=== PATIENT | male | born 1960 | race Caucasian/White ===

== ENCOUNTER 2016-09-17 07:03 | Outpatient (CLI) | payer BC | END 2016-09-17 07:04 | disposition home or self-care (01) | DX: G47.61 Periodic limb movement disorder (principal) ==

== ENCOUNTER 2016-10-18 09:03 | Outpatient (CLI) | payer BC | END 2016-10-18 09:04 | disposition home or self-care (01) | DX: G47.61 Periodic limb movement disorder (principal); G47.10 Hypersomnia, unspecified ==

== ENCOUNTER 2017-02-25 07:40 | Outpatient (CLI) | payer BC ==
[2017-02-25] MEDS ORDERED: GADOBUTROL 10 MMOL/10 ML SYRINGE IVP ONE (08:41)
--- NOTE | 2017-02-25 12:47 | MRI Report ---
MRI brain and orbits without and with contrast INDICATION: 57-year-old male with history of 2 episodes of iritis in past 10 years. Please assess. TECHNIQUE: Imaging of the brain and orbits has been performed. Brain 1. T1 sagittal and fat-saturated T2 coronal. 2. Axial T1 3-D MP RAGE, FLAIR, T2* and DWI. 3. 8 cc IV Gadavist. T1 3-D and T1 spin echo axials. Orbits 1. Thin slice, fat-saturated T2 coronal. 2. Postcontrast, thin slice, T1 fat saturated axial and coronal. COMPARISON: None. FINDINGS: Orbits Assessment is somewhat limited, given absence of precontrast, T1 fat-saturated axial sequence through the orbits. There does appear to be smooth thin uveal tract enhancement bilaterally in symmetric pat tern with relative sparing of the anterior uveal tracts bilaterally. This is not clearly pathologic. No abnormal enhancement is identified in the retro-bulbar fat or along the course of either optic ner ve. No evidence of choroidal or retinal detachment in either orbit. In addition, no enhancing intraoc ular mass lesion is demonstrated. The optic nerves demonstrate normal signal intensity throughout. No abnormal T2 hyperintensity is demonstrated. The optic chiasm is normal and noncompressed. The extrao cular muscles and lacrimal glands appear normal. No evidence of intraorbital mass. The superior ophth almic veins are normal in size and appear patent. There is normal, symmetric enhancement of the malcom nous sinuses without evidence of cavernous sinus mass or thrombosis. Brain Ventricular size is normal. A mild amount of white matter disease is identified in the supratentorial brain, manifested as small T2 hyperintensities that are scattered throughout the periventricular, deep and subcortical white mat ter bilaterally. A frontoparietal distribution predominates. Signal intensity of cortex and white mat ter is otherwise normal. Flow voids are demonstrated in the main intracranial arteries. No abnormal diffusion restriction is d emonstrated. No evidence of acute or chronic hemorrhage on T2* GRE sequence. The pineal gland is mildly enlarged. It measures about 8.4 mm AP by 8 mm transverse. The enlargement is secondary to a few cysts within the pineal gland. There is smooth uniform enhancement surrounding the pineal cyst. No nodular type enhancement is identified in the pineal region, and there is no path ologic leptomeningeal enhancement in the pararenal pineal area. Therefore, the imaging findings are m ost suggestive of benign change. No findings would suggest the possibility of pineal malignancy. No enhancing intra-or extra-axial mass lesion is demonstrated. No pathologic meningeal or cranial ner ve enhancement is identified. There appears be normal intravascular contrast enhancement in the dural venous sinuses and deep venous structures. This effectively excludes the possibility of venous throm bosis. There is minor mucosal thickening scattered throughout the ethmoid air cells. The paranasal sinuses a re otherwise clear. No significant mastoid or middle ear effusion is demonstrated. IMPRESSION: 1. Unremarkable MRI examination of the orbits. There is very thin, smooth enhancement of the uveal tr acts in both optic globes. However, this is not considered pathologic. In addition, no abnormal enhan cement is identified in the retrobulbar fat or along the course of either optic nerve. 2. A mild amount of white matter disease is identified in the supratentorial brain. The etiology is u ncertain. Differential diagnostic considerations would include virtually the entire gamut of white ma tter disease. However, statistically this most likely represents chronic microangiopathy. The index o f suspicion for a demyelinating process is low. 3. Otherwise unremarkable MRI examination of the brain. Referring Provider Line: [phone] SITE ID: [id number]
== END 2017-02-25 07:41 | disposition home or self-care (01) ==
LOC: DI 07:40
PROVIDERS: ATTEND Physician Assistant Medical
DX: H20.9 Unspecified iridocyclitis (principal); R90.82 White matter disease, unspecified
CPT/HCPCS: 70553; A9585

== ENCOUNTER 2017-03-24 07:26 | Outpatient (CLI) | payer BC ==
--- NOTE | 2017-03-25 10:39 | Ultrasound Report ---
AORTA SCREEN: 03/24/2017 CLINICAL INDICATION: Family history of aneurysm. TECHNIQUE: Real-time scanning was performed with patient account representative static images obtained. FINDINGS: The abdominal aorta is normal in caliber, measuring 2.5 cm proximally, 1.7 cm in the mid p ortion, and 1.5 cm distally. The iliacs are normal in caliber. No free fluid is present. IMPRESSION: NO EVIDENCE OF ABDOMINAL AORTIC ANEURYSM. JOB #: [id number] EXT JOB #:
== END 2017-03-24 07:27 | disposition home or self-care (01) ==
LOC: DI 07:26
PROVIDERS: ATTEND Physician Assistant Medical
DX: Z82.49 Family history of ischemic heart disease and other diseases of the circulatory system (principal)
CPT/HCPCS: 76706

== ENCOUNTER 2017-04-11 07:33 | Outpatient (CLI) | payer BC ==
--- NOTE | 2017-04-11 09:30 | CT Report ---
CHEST CT WITHOUT CONTRAST: 04/11/2017 CLINICAL INDICATION: A 57-year-old with [id number] history of smoking, quit within the last 15 year s, for lung cancer screening. TECHNIQUE: Axial CT images of the chest were obtained without contrast, using low dose electro mechanical technologist nique. No previous CT is available for comparison. FINDINGS: The heart and great vessels are unremarkable. No hilar or mediastinal lymphadenopathy is p resent. The lungs are clear. No effusion or pneumothorax is present. No pulmonary nodule or mass lesi on is seen. Limited evaluation of upper abdominal structures demonstrates normal adrenal glands. The osseous structures demonstrate mild degenerative changes. IMPRESSION: NEGATIVE EXAMINATION. RECOMMENDATION: CONTINUE ANNUAL SCREENING WITH LOW DOSE CT IN TWELVE MONTHS. LUNG RADS CATEGORY 1-NEGATIVE. In accordance with CT protocol optimization, one or more of the following dose reduction techniques w ere utilized for this exam: automated exposure control, adjustment of mA and/or KV based on patient size, or use of iterative reconstructive technique. JOB #: [id number] EXT JOB #:[id number]
== END 2017-04-11 07:34 | disposition home or self-care (01) ==
LOC: DI 07:33
PROVIDERS: ATTEND Physician Assistant Medical
DX: Z12.2 Encounter for screening for malignant neoplasm of respiratory organs (principal); Z87.891 Personal history of nicotine dependence